=== PATIENT | female | born 1990 | race Native Hawaiian/Other Pacific Islander ===

== ENCOUNTER 2018-11-11 19:32 | Emergency (ER) | payer OTHER ==
[~2018-11-11] VITALS: Ht 160 cm; Wt 129.3 kg
[2018-11-11 20:41] VITALS: BP 115/75
== END 2018-11-11 20:43 | disposition home or self-care (01) ==
LOC: ED 19:32
DX: N91.2 Amenorrhea, unspecified (principal); J45.909 Unspecified asthma, uncomplicated
CPT/HCPCS: 81000; 81025; 99283

== ENCOUNTER 2021-02-11 06:28 | Emergency (ER) | payer OTHER ==
[~2021-02-11] VITALS: Ht 160 cm; Wt 129.3 kg
[2021-02-11] MEDS ORDERED: ROPI5T PO (06:43)
[2021-02-11] MEDS ORDERED: MOBIC15 MG PO (06:44)
[2021-02-11] MEDS ORDERED: ROBAXIN-750750 MG PO (06:44)
[2021-02-11 08:10] VITALS: BP 142/88; TEMP 99.1
== END 2021-02-11 08:11 | disposition home or self-care (01) ==
LOC: ED 06:28
DX: S60.221A Contusion of right hand, initial encounter (principal); W22.8XXA Striking against or struck by other objects, initial encounter; Y93.89 Activity, other specified; Y92.89 Other specified places as the place of occurrence of the external cause; Y99.8 Other external cause status
CPT/HCPCS: 99283; J1885

== ENCOUNTER 2021-04-17 02:03 | Emergency (ER) | payer OTHER ==
[~2021-04-17] VITALS: Ht 162.6 cm; Wt 136.1 kg
[~2021-04-17 02:03] MED LIST: MOBIC15 MG PO; ROBAXIN-750750 MG PO; ROPI5T PO
[2021-04-17] MEDS ORDERED: SERT50TA PO (02:17)
[2021-04-17] MEDS ORDERED: BUSPIRONE10 MG PO (02:18)
[2021-04-17 02:46] LABS: PLATELET COUNT 217 K/uL (152-353)
[2021-04-17 02:49] LABS: POTASSIUM 4.1 mmol/L (3.6-5.2); SODIUM 137 mmol/L (136-145)
[2021-04-17 04:13] LABS: PARTIAL THROMBOPLASTIN TIME 26.5 SECONDS (24.5-33.6)
[2021-04-17 05:00] VITALS: BP 111/70; TEMP 99
== END 2021-04-17 05:00 | disposition home or self-care (01) ==
LOC: ED 02:03
PROVIDERS: Hospitalist
DX: J06.9 Acute upper respiratory infection, unspecified (principal); R50.9 Fever, unspecified; F17.210 Nicotine dependence, cigarettes, uncomplicated
CPT/HCPCS: 36415; 80053; 82550; 82553; 83880; 84484; 85008; 85027; 85610; 85730; 93005; 96360; 96374; 96375; 99284; J1100; J2405